=== PATIENT | female | born 1960 | race Hispanic/Latino ===

== ENCOUNTER 2016-10-07 09:12 | Outpatient (CLI) | payer BC ==
--- NOTE | 2016-10-07 10:00 | Mammography Report ---
BILATERAL MAMMOGRAM: FINDINGS: The breasts are almost entirely fat (<25% glandular). No mass, distortion, suspicious calcification, or skin change is seen. No significant change compared to prior exam in September 2015. CAD was utilized. IMPRESSION: Negative mammogram. There is no mammographic evidence of malignancy. RECOMMENDATION: Follow-up per ACS guidelines. BI-RADS CATEGORY: 1 = Negative ACR BI-RADS MAMMOGRAPHIC CODES: 0 = Needs additional imaging evaluation; 1 = Negative; 2 = Benign; 3 = Probably benign; 4 = Suspicious; 5 = Malignant; 6 = Known biopsy-proven malignancy COMMENT: 1. Dense breast tissue, i.e., adenosis, fibrocystic changes, etc., may obscure an underlying neoplasm. 2. Approximately 10% of cancers are not detected with mammography. 3. A negative mammography report should not delay biopsy if a clinically suspicious mass is present. COMMENT: Patient follow-up letters are generated in [employer].
== END 2016-10-07 09:13 | disposition home or self-care (01) ==
LOC: SPVWC 09:12
PROVIDERS: ATTEND Obstetrics & Gynecology
DX: Z12.31 Encounter for screening mammogram for malignant neoplasm of breast (principal)
CPT/HCPCS: 77067; G0202

== ENCOUNTER 2017-02-25 03:19 | Inpatient (IN) | payer BC ==
[2017-02-25] MEDS ORDERED: KEPPRA 1,000 MG in NACL 0.9% 100 ML IV ONE (04:41)
--- NOTE | 2017-02-25 04:48 | Emergency Department Report ---
ED Seizure HPI - General Chief Complaint: Seizure Stated Complaint: SEIZURES Time Seen by Provider: 02/25/17 04:37 Source: family (Father/son ), EMS Mode of arrival: Stretcher Limitations: Altered Mental Status - History of Present Illness Initial Comments: 57 yo female who was brought in via ems due to seizures. Per the family, the patient stated that she didn't feel right earlier on last night. She was recently diagnosed with a brain tumor for which she is soon to start radiation and chemo. Dr. Paulson at [place] is her oncologist and Dr. Beach is her neurosurgeon. Since the patient was diagnosed with a brain tumor, she has had seizures. She was started on keppra to control the seizures. states that he spoke with the oncologist and was instructed to increase the dose. The patient is able to maintain her airway. Her mental status is improved back to baseline. She received 5mg of versed en route to the hospital via ems. MD Complaint: seizure -: This evening Description of Episode: other (brain tumor-seizure activity ) Witnessed:: Yes Trauma: No Seizure History: other (recently diagnosed brain tumor ) Possible Precipitating Event: other (brain tumor ) Associated Symptoms: other (nausea,vomiting, possible aspiration ) Treatments Prior to Arrival: benzodiazepines - Related Data Home Medications Medication Instructions Recorded Confirmed Last Taken Hydrochlorothiazide [HCTZ] 25 mg PO QDAY 01/09/17 01/09/17 Unknown Levothyroxine Sodium [Synthroid] 100 mcg PO DAILY 01/09/17 01/09/17 Unknown Metoprolol Succinate [Toprol Xl] 25 mg PO DAILY 01/09/17 01/09/17 Unknown PARoxetine [Paxil] 20 mg PO DAILY 01/09/17 01/09/17 01/05/17 20 SUMAtriptan SUCCINATE [Imitrex] 100 mg PO Q4H PRN 01/09/17 01/09/17 Unknown Previous Rx's Medication Instructions Recorded Last Taken Type Zolpidem [Ambien] 5 mg PO QHS PRN #7 tablet 01/13/17 Unknown Rx levETIRAcetam [Keppra TAB] 1,000 mg PO BID #60 tablet 01/13/17 Unknown Rx Allergies Allergy/AdvReac Type Severity Reaction Status Date / Time Penicillins Allergy Anaphylaxis Verified 02/25/17 04:36 Sulfa (Sulfonamide Allergy Anaphylaxis Verified 01/06/17 02:59 Antibiotics) ED Review of Systems ROS: Stated complaint: SEIZURES Other details as noted in HPI Constitutional: denies: chills, fever Eyes: denies: eye pain, eye discharge, vision change ENT: as per HPI Respiratory: denies: cough, shortness of breath, wheezing Cardiovascular: denies: chest pain, palpitations Endocrine: no symptoms reported Gastrointestinal: denies: abdominal pain, nausea, diarrhea Genitourinary: denies: urgency, dysuria, discharge Musculoskeletal: denies: back pain, joint swelling, arthralgia Skin: denies: rash, lesions Neurological: as per HPI Psychiatric: denies: anxiety, depression Hematological/Lymphatic: denies: easy bleeding, easy bruising ED Past Medical Hx - Past Medical History Hx Hypertension: Yes Hx Congestive Heart Failure: No Hx Diabetes: No Hx Deep Vein Thrombosis: No Hx Psychiatric Treatment: Yes (Depression, Anxiety) Hx Asthma: No Hx COPD: No Additional medical history: brain tumor-newly diagnosed - Surgical History Hx Pacemaker: No Hx Internal Defibrillator: No - Social History Smoking Status: Never Smoker Substance Use Type: Prescribed - Medications Home Medications: Home Medications Medication Instructions Recorded Confirmed Last Taken Type Hydrochlorothiazide [HCTZ] 25 mg PO QDAY 01/09/17 01/09/17 Unknown History Levothyroxine Sodium [Synthroid] 100 mcg PO DAILY 01/09/17 01/09/17 Unknown History Metoprolol Succinate [Toprol Xl] 25 mg PO DAILY 01/09/17 01/09/17 Unknown History PARoxetine [Paxil] 20 mg PO DAILY 01/09/17 01/09/17 01/05/17 History 20 SUMAtriptan SUCCINATE [Imitrex] 100 mg PO Q4H PRN 01/09/17 01/09/17 Unknown History Zolpidem [Ambien] 5 mg PO QHS PRN #7 tablet 01/13/17 Unknown Rx levETIRAcetam [Keppra TAB] 1,000 mg PO BID #60 tablet 01/13/17 Unknown Rx ED Physical Exam - General Limitations: Altered Mental Status General appearance: other (somnolent) - Head Head exam: Present: atraumatic, normocephalic - Eye Eye exam: Present: normal appearance - ENT ENT exam: Present: mucous membranes moist - Neck Neck exam: Present: normal inspection - Respiratory Respiratory exam: Present: normal lung sounds bilaterally. Absent: respiratory distress - Cardiovascular Cardiovascular Exam: Present: regular rate, normal rhythm. Absent: systolic murmur, diastolic murmur, rubs, gallop - GI/Abdominal GI/Abdominal exam: Present: soft, normal bowel sounds - Extremities Exam Extremities exam: Present: normal inspection - Back Exam Back exam: Present: normal inspection - Neurological Exam Neurological exam: Present: alert (awake ) - Psychiatric Psychiatric exam: Present: other (somnolent ) - Skin Skin exam: Present: warm, dry, intact, normal color. Absent: rash ED Course Vital Signs 02/25/17 02/25/17 04:31 04:34 Temperature 97.9 F Pulse Rate 98 H Respiratory 20 20 Rate Blood Pressure 121/81 [Left] O2 Sat by Pulse 100 100 Oximetry - Reevaluation(s) Reevaluation #1: 02/25/17 05:20 Awaiting labs and imaging results. Giving keppra 1000 mg iv times one. Plan to transfer to [facility] when evaluation completed. 02/25/17 06:[address] Whatley. ED Medical Decision Making - Lab Data Result diagrams: 02/25/17 05:08 02/25/17 05:08 - Medical Decision Making Newly diagnosed brain tumor Seizure disorder Aspiration pneumonitis - Differential Diagnosis brain tumor, seizure disorder, aspiration pneumonitis Critical care attestation.: If time is entered above; I have spent that time in minutes in the direct care of this critically ill patient, excluding procedure time. ED Disposition Clinical Impression: Seizure, Brain tumor Disposition: [id number]/TX-[id number] ANOTHER TYPE HLTHCARE Is pt being admited?: Yes Does the pt Need Aspirin: No Condition: Stable Referrals: JOY NUGENT MD [Primary Care Provider] - 3-5 Days
[2017-02-25] MEDS ORDERED: ZOFRAN IV ONE ×2 (04:56→18:00)
[2017-02-25] MEDS ORDERED: NACL 0.9% 1000 ML 1,000 ML IV SCH (05:00)
[2017-02-25] MEDS ORDERED: LEVAQUIN 750MG/150ML 750 MG/150 ML BAG IV ONE (05:08)
--- NOTE | 2017-02-25 05:15 | XRay Report ---
FINAL REPORT PROCEDURE: XR CHEST 1V AP TECHNIQUE: Chest radiograph anteroposterior view. CPT 87509 HISTORY: chest pain COMPARISON: No prior studies are available for comparison. FINDINGS: Heart: Normal. Mediastinum/Vessels: Normal. Lungs/Pleural space: Lungs are clear. There are no infiltrates, effusions or pneumothoraces.. Bony thorax: No acute osseous abnormality. Life support devices: None. IMPRESSION: No acute cardiopulmonary abnormality.
[2017-02-25 05:34] LABS: Hematocrit 40.2 % (30.3-42.9); Mean Corpuscular HGB Conc 35 % (30-34); Mean Corpuscular Hemoglobin 32 pg (28-32); Mean Corpuscular Volume 91 fl (79-97); Platelet Count 285 K/mm3 (140-440); Red Blood Count 4.41 M/mm3 (3.65-5.03); Red Cell Distribution Width 13.9 % (13.2-15.2); White Blood Count 15.2 K/mm3 (4.5-11.0)
[2017-02-25 05:45] LABS: INR 0.97 (0.87-1.13)
[2017-02-25 05:46] LABS: Partial Thromboplastin Time 24.3 Sec. (24.2-36.6)
[2017-02-25 05:52] LABS: Creatine Kinase MB 2.5 ng/mL (0.0-4.0)
[2017-02-25 05:53] LABS: Alanine Aminotransferase 20 units/L (7-56); Albumin 4.3 g/dL (3.9-5); Albumin/Globulin Ratio 2.2 %; Alkaline Phosphatase 60 units/L (35-129); Anion Gap 20 mmol/L; BUN/Creatinine Ratio 13; Blood Urea Nitrogen 9 mg/dL (7-17); Calcium 9.2 mg/dL (8.4-10.2); Carbon Dioxide 26 mmol/L (22-30); Chloride 99.7 mmol/L (98-107); Creatine Kinase 46 units/L (30-135); Glucose 133 mg/dL (65-100); Potassium 3.5 mmol/L (3.6-5.0); Sodium 142 mmol/L (137-145); Total Protein 6.3 g/dL (6.3-8.2)
[2017-02-25] MEDS ORDERED: KEPPRA 1,000 MG/NS 0.75% 100ML 1,000 MG/100 ML BAG IV ONE (06:00)
[2017-02-25 06:22] LABS: Basophils % (Manual) 0 % (0.0-1.8); Blastocytes % (Manual) 0 %; Eosinophils % (Manual) 0 % (0.0-4.3)
[2017-02-25 06:23] LABS: Diff Status Complete; Ovalocytes 1+
[2017-02-25 07:16] LABS: Cholesterol 210 mg/dL (50-199); HDL Cholesterol 66 mg/dL (40-59); LDL Cholesterol,Direct 118 mg/dL (50-130); Triglycerides 133 mg/dL (2-149)
--- NOTE | 2017-02-25 07:47 | Cat Scan Report ---
FINAL REPORT PROCEDURE: CT HEAD/BRAIN WO CON TECHNIQUE: Computerized tomography of the head was performed without contrast material. HISTORY: seizure COMPARISON: 01/06/2017 FINDINGS: Skull and scalp: There is evidence of an old left temporal craniotomy with hardware placement. There is scarring of the left temporal and frontal scalp soft tissue.. Paranasal sinuses: Normal. Ventricles and subarachnoid spaces: Normal. Cerebrum: There is focal encephalomalacia of the left temporal lobe which could be due to prior surgical resection or other injury. There is no hemorrhage, edema, mass, mass effect or midline shift.. Cerebellum and brainstem: No evidence of hemorrhage, acute infarction or mass. Vasculature: Normal. IMPRESSION: There are left temporal postsurgical changes. There is no acute intracranial abnormality. If there is clinical concern for tumor recurrence, MRI of the brain with contrast may be indicated.
--- NOTE | 2017-02-25 09:49 | Emergency Department Report ---
Doris Doc - Documentation Documentation: Patient is signed out to me by Dr. Murphy to check labs, CT and transfer patient to [place]. Patient was recently diagnosed with a brain tumor that was recently removed operatively by a neurosurgeon. Patient developed seizures since diagnosis of brain tumor in December. At 1 PM the spoke to the patient via phone and she sounded normal. When he returned home at 5:15 PM patient was having difficulty forming words and slurred speech. Patient has similar symptoms for several days after seizures when diagnosed in December ( Initially thought to be an infectious issue but later found to be a brain tumor) . Patient apparently had 5 subsequent seizures and continues to have slurred speech and altered mental stauts At 9:45 AM I discussed case with Dr. Burns's PA. Recommend to call the [facility] transfer line to have patient admitted At 10 AM I spoke to [facility] transfer line. They will call back with the accepting physician at 10:19 AM received callback from [facility] transfer. I spoke to Dr. Burns's PA after speaking to the patient via telephone and requested transfer to [facility]. They provided they provide bed control number for transfer called Bed control, no beds at [facility] therefore will call back [place] 10:35 am I spoke to DENNY caldera transitions rn care coordinator: Dr Benoit - no beds at [facility], also rec transfer to [facility] and no beds. 10:46 am Pt accepted by Dr Goode at [facility]. No beds at this time but bed anticipated in the next several hours. Dr. Murillo (ED director) spoke to hospitalist director Dr Porter about admitting pt here 11:10 am pt accepted by Dr Yan for admission. Family and pt informed.
[2017-02-25 12:01] LABS: Urine Drugs of Abuse Note Disclamer
[2017-02-25 12:09] LABS: Bilirubin,Urine NEG (Negative); Blood,Urine NEG (Negative); Ketones,Urine TR mg/dL (Negative); Leukocyte Esterase,Urine NEG (Negative); Nitrite,Urine NEG (Negative); Protein,Urine <15 mg/dL mg/dL (Negative); Urobilinogen,Urine < 2.0 mg/dL (<2.0); WBC,Urine < 1.0 /HPF (0.0-6.0)
--- NOTE | 2017-02-25 14:25 | History and Physical Report ---
History of Present Illness Date of examination: 02/25/17 Date of admission: 02/25/17 12:49 Chief complaint: Seizures And AMS since AM History of present illness: See H/p in dictation Medications and Allergies Allergies Allergy/AdvReac Type Severity Reaction Status Date / Time Penicillins Allergy Anaphylaxis Verified 02/25/17 04:36 Sulfa (Sulfonamide Allergy Anaphylaxis Verified 01/06/17 02:59 Antibiotics) Home Medications Medication Instructions Recorded Confirmed Last Taken Type Hydrochlorothiazide [HCTZ] 25 mg PO QDAY 01/09/17 02/25/17 02/25/17 History Levothyroxine Sodium [Synthroid] 100 mcg PO DAILY 01/09/17 02/25/17 02/25/17 History Metoprolol Succinate [Toprol Xl] 25 mg PO DAILY 01/09/17 02/25/17 02/25/17 History PARoxetine [Paxil] 20 mg PO DAILY 01/09/17 02/25/17 02/25/17 History levETIRAcetam [Keppra TAB] 1,000 mg PO BID #60 tablet 01/13/17 02/25/17 Rx Multivitamin [Multiple Vitamins] 1 each PO DAILY 02/25/17 02/25/17 02/25/17 History Active Meds: Active Medications Sodium Chloride (Nacl 0.9% 1000 Ml) 1,000 mls @ 100 mls/hr IV DIRECT MISAEL Review of Systems All systems: negative Exam - Constitutional Vitals: Temp Pulse Resp BP Pulse Ox 97.9 F 98 H 20 121/81 100 02/25/17 04:31 02/25/17 04:31 02/25/17 04:34 02/25/17 04:31 02/25/17 04:34 General appearance: Present: no acute distress, well-nourished - EENT Eyes: Present: PERRL ENT: hearing intact, clear oral mucosa - Neck Neck: Present: supple, normal ROM - Respiratory Respiratory effort: normal Respiratory: bilateral: CTA - Cardiovascular Heart Sounds: Present: S1 & S2. Absent: rub, click - Extremities Extremities: pulses symmetrical, No edema Peripheral Pulses: within normal limits - Abdominal General gastrointestinal: Present: soft, non-tender, non-distended, normal bowel sounds Female genitourinary: Present: normal - Integumentary Integumentary: Present: clear, warm, dry - Musculoskeletal Musculoskeletal: gait normal, strength equal bilaterally - Psychiatric Psychiatric: appropriate mood/affect, intact judgment & insight - Neurologic Neurologic: CNII-XII intact, moves all extremities Results - Labs CBC & Chem 7: 02/25/17 05:08 02/25/17 05:08 Labs: Laboratory Last Values WBC 15.2 K/mm3 (4.5-11.0) H 02/25/17 05:08 RBC 4.41 M/mm3 (3.65-5.03) 02/25/17 05:08 Hgb 14.0 gm/dl (10.1-14.3) 02/25/17 05:08 Hct 40.2 % (30.3-42.9) 02/25/17 05:08 MCV 91 fl (79-97) 02/25/17 05:08 MCH 32 pg (28-32) 02/25/17 05:08 MCHC 35 % (30-34) H 02/25/17 05:08 RDW 13.9 % (13.2-15.2) 02/25/17 05:08 Plt Count 285 K/mm3 (140-440) 02/25/17 05:08 Add Manual Diff Complete 02/25/17 05:08 Total Counted 100 02/25/17 05:08 Seg Neutrophils % Jewelry Sorter 02/25/17 05:08 Seg Neuts % (Manual) 92.0 % (40.0-70.0) H 02/25/17 05:08 Band Neutrophils % 0 % 02/25/17 05:08 Lymphocytes % (Manual) 5.0 % (13.4-35.0) L 02/25/17 05:08 Reactive Lymphs % (Man) 0 % 02/25/17 05:08 Monocytes % (Manual) 2.0 % (0.0-7.3) 02/25/17 05:08 Eosinophils % (Manual) 0 % (0.0-4.3) 02/25/17 05:08 Basophils % (Manual) 0 % (0.0-1.8) 02/25/17 05:08 Metamyelocytes % 1.0 % 02/25/17 05:08 Myelocytes % 0 % 02/25/17 05:08 Promyelocytes % 0 % 02/25/17 05:08 Blast Cells % 0 % 02/25/17 05:08 Nucleated RBC % Not Reportable 02/25/17 05:08 Seg Neutrophils # Man 14.0 K/mm3 (1.8-7.7) H 02/25/17 05:08 Band Neutrophils # 0.0 K/mm3 02/25/17 05:08 Lymphocytes # (Manual) 0.8 K/mm3 (1.2-5.4) L 02/25/17 05:08 Abs React Lymphs (Man) 0.0 K/mm3 02/25/17 05:08 Monocytes # (Manual) 0.3 K/mm3 (0.0-0.8) 02/25/17 05:08 Eosinophils # (Manual) 0.0 K/mm3 (0.0-0.4) 02/25/17 05:08 Basophils # (Manual) 0.0 K/mm3 (0.0-0.1) 02/25/17 05:08 Metamyelocytes # 0.2 K/mm3 02/25/17 05:08 Myelocytes # 0.0 K/mm3 02/25/17 05:08 Promyelocytes # 0.0 K/mm3 02/25/17 05:08 Blast Cells # 0.0 K/mm3 02/25/17 05:08 WBC Morphology Not Reportable 02/25/17 05:08 Hypersegmented Neuts Not Reportable 02/25/17 05:08 Hyposegmented Neuts Not Reportable 02/25/17 05:08 Hypogranular Neuts Not Reportable 02/25/17 05:08 Smudge Cells Not Reportable 02/25/17 05:08 Toxic Granulation Not Reportable 02/25/17 05:08 Toxic Vacuolation Not Reportable 02/25/17 05:08 Dohle Bodies Not Reportable 02/25/17 05:08 Pelger-Huet Anomaly Not Reportable 02/25/17 05:08 Herb Rods Not Reportable 02/25/17 05:08 Platelet Estimate Appears normal 02/25/17 05:08 Clumped Platelets Not Reportable 02/25/17 05:08 Plt Clumps, EDTA Not Reportable 02/25/17 05:08 Large Platelets Not Reportable 02/25/17 05:08 Giant Platelets Not Reportable 02/25/17 05:08 Platelet Satelliting Not Reportable 02/25/17 05:08 Plt Morphology Comment Not Reportable 02/25/17 05:08 RBC Morphology Not Reportable 02/25/17 05:08 Dimorphic RBCs Not Reportable 02/25/17 05:08 Polychromasia Not Reportable 02/25/17 05:08 Hypochromasia Not Reportable 02/25/17 05:08 Poikilocytosis Not Reportable 02/25/17 05:08 Anisocytosis Not Reportable 02/25/17 05:08 Microcytosis Not Reportable 02/25/17 05:08 Macrocytosis Not Reportable 02/25/17 05:08 Spherocytes Not Reportable 02/25/17 05:08 Pappenheimer Bodies Not Reportable 02/25/17 05:08 Sickle Cells Not Reportable 02/25/17 05:08 Target Cells Not Reportable 02/25/17 05:08 Tear Drop Cells Not Reportable 02/25/17 05:08 Ovalocytes 1+ 02/25/17 05:08 Helmet Cells Not Reportable 02/25/17 05:08 [place] Bodies Not Reportable 02/25/17 05:08 [place] Rings Not Reportable 02/25/17 05:08 [place] Cells Not Reportable 02/25/17 05:08 Bite Cells Not Reportable 02/25/17 05:08 Crenated Cell Not Reportable 02/25/17 05:08 Elliptocytes Not Reportable 02/25/17 05:08 Acanthocytes (Spur) Not Reportable 02/25/17 05:08 Rouleaux Not Reportable 02/25/17 05:08 Hemoglobin C Crystals Not Reportable 02/25/17 05:08 Schistocytes Not Reportable 02/25/17 05:08 Malaria parasites Not Reportable 02/25/17 05:08 Estrada Bodies Not Reportable 02/25/17 05:08 Hem Pathologist Commnt No 02/25/17 05:08 PT 13.4 Sec. (12.2-14.9) 02/25/17 05:08 INR 0.97 (0.87-1.13) 02/25/17 05:08 APTT 24.3 Sec. (24.2-36.6) 02/25/17 05:08 Sodium 142 mmol/L (137-145) 02/25/17 05:08 Potassium 3.5 mmol/L (3.6-5.0) L 02/25/17 05:08 Chloride 99.7 mmol/L (98-107) 02/25/17 05:08 Carbon Dioxide 26 mmol/L (22-30) 02/25/17 05:08 Anion Gap 20 mmol/L 02/25/17 05:08 BUN 9 mg/dL (7-17) 02/25/17 05:08 Creatinine 0.7 mg/dL (0.7-1.2) 02/25/17 05:08 Estimated GFR > 60 ml/min 02/25/17 05:08 BUN/Creatinine Ratio 13 % 02/25/17 05:08 Glucose 133 mg/dL (65-100) H 02/25/17 05:08 POC Glucose 157 (70-105) H 02/25/17 03:30 Calcium 9.2 mg/dL (8.4-10.2) 02/25/17 05:08 Total Bilirubin 0.40 mg/dL (0.1-1.2) 02/25/17 05:08 AST 15 units/L (5-40) 02/25/17 05:08 ALT 20 units/L (7-56) 02/25/17 05:08 Alkaline Phosphatase 60 units/L (35-129) 02/25/17 05:08 Total Creatine Kinase 46 units/L (30-135) 02/25/17 05:08 CK-MB (CK-2) 2.5 ng/mL (0.0-4.0) 02/25/17 05:08 CK-MB (CK-2) Rel Index 5.4 (0-4) H 02/25/17 05:08 Troponin T 0.063 ng/mL (0.00-0.029) H D 02/25/17 09:58 Total Protein 6.3 g/dL (6.3-8.2) 02/25/17 05:08 Albumin 4.3 g/dL (3.9-5) 02/25/17 05:08 Albumin/Globulin Ratio 2.2 % 02/25/17 05:08 Triglycerides 133 mg/dL (2-149) 02/25/17 05:08 Cholesterol 210 mg/dL (50-199) H 02/25/17 05:08 LDL Cholesterol Direct 118 mg/dL (50-130) 02/25/17 05:08 HDL Cholesterol 66 mg/dL (40-59) H 02/25/17 05:08 Cholesterol/HDL Ratio 3.18 % 02/25/17 05:08 Urine Color Yellow (Yellow) 02/25/17 12:00 Urine Turbidity Clear (Clear) 02/25/17 12:00 Urine pH 5.0 (5.0-7.0) 02/25/17 12:00 Ur Specific Mobile 1.017 (1.003-1.030) 02/25/17 12:00 Urine Protein <15 mg/dl mg/dL (Negative) 02/25/17 12:00 Urine Glucose (UA) 50 mg/dL (Negative) 02/25/17 12:00 Urine Ketones Tr mg/dL (Negative) 02/25/17 12:00 Urine Blood Neg (Negative) 02/25/17 12:00 Urine Nitrite Neg (Negative) 02/25/17 12:00 Urine Bilirubin Neg (Negative) 02/25/17 12:00 Urine Urobilinogen < 2.0 mg/dL (<2.0) 02/25/17 12:00 Ur Leukocyte Esterase Neg (Negative) 02/25/17 12:00 Urine WBC (Auto) < 1.0 /HPF (0.0-6.0) 02/25/17 12:00 Urine RBC (Auto) 1.0 /HPF (0.0-6.0) 02/25/17 12:00 Hyaline Casts 1 /LPF 02/25/17 12:00 Urine Opiates Screen Presumptive negative 02/25/17 12:00 Urine Methadone Screen Presumptive negative 02/25/17 12:00 Ur Barbiturates Screen Presumptive negative 02/25/17 12:00 Ur Phencyclidine Scrn Presumptive negative 02/25/17 12:00 Ur Amphetamines Screen Presumptive negative 02/25/17 12:00 U Benzodiazepines Scrn Presumptive positive 02/25/17 12:00 Urine Cocaine Screen Presumptive negative 02/25/17 12:00 U Marijuana (THC) Screen Presumptive positive 02/25/17 12:00 Drugs of Abuse Note Disclamer 02/25/17 12:00 Assessment and Plan Assessment and plan: See H/p in dictation
[2017-02-25 15:47] VITALS: BP 136/72
--- NOTE | 2017-02-26 14:48 | History and Physical Report ---
CHIEF COMPLAINT: 1. Seizures. 2. Altered mental status. HISTORY OF PRESENT ILLNESS: A 57-year-old female brought by EMS because of seizures. The patient had a brain tumor for which she was biopsied. She does not know whether the whole mass was removed. The patient soon to start radiation and chemotherapy. Dr. Paulson at [facility] is her oncologist and Dr. Beach is her neurosurgeon. She was diagnosed with brain tumor recently. The patient is confused and with altered sensorium. No fever, no chills. 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 CURRENT MEDICATIONS: Hydrochlorothiazide 25 mg p.o. daily, Synthroid 100 mcg p.o. daily, metoprolol 25 mg p.o. daily, Paxil 20 mg p.o. daily, sumatriptan succinate, which is Imitrex 100 mg p.o. q.4h. p.r.n. ALLERGIES: PENICILLIN, SULFA and LEVAQUIN. PAST SURGICAL HISTORY: Recent biopsy. No defibrillator, no pacemaker. SOCIAL HISTORY: Does not smoke. FAMILY HISTORY: Hypertension. REVIEW OF SYSTEMS: Significant for seizures and postictal state. Otherwise, review of systems is essentially negative. No weight loss, no weight gain. Seizures in the remote past. PHYSICAL EXAMINATION: GENERAL: A middle-aged female, cooperative during examination but lethargic. VITAL SIGNS: Blood pressure is 144/71, pulse is 83, temperature is 98.1, respirations are 19, sats are 92%. HEENT: Unremarkable. Pupils equal and reactive. NECK: Supple, no lymphadenopathy, no thyromegaly. LUNGS: Clear to auscultation and percussion. Good air entry. CARDIOVASCULAR: S1, S2 heard. No gallop, no murmur, no rub. Apical impulse in the left fifth intercostal space and midclavicular line. ABDOMEN: Soft and benign. No hepatosplenomegaly. No guarding. No rigidity. Hernial orifices are normal. EXTREMITIES: Good pedal pulses. No pedal edema. CENTRAL NERVOUS SYSTEM: Alert and oriented x 4, nonfocal exam. Quite lethargic. SKIN: Normal. LABORATORY DATA: Significant for hemoglobin of 14 and hematocrit of 40.2, WBC count is 15,200. Electrolytes are normal. Glucose is slightly high at 133. Troponin is 0.043 and 0.063. Total cholesterol was 210, LDL is 118, HDL is ____ which itself is high. Urine was negative. Drug screen was negative. CAT scan of the head showed normal CAT scan, no acute changes in the brain. ASSESSMENT AND PLAN: 1. Acute encephalopathy secondary to seizures. IV fluids for the time being. Continue IV Keppra. 2. Seizure disorder. Continue IV Keppra. 3. Brain tumor, recent biopsy. The patient underwent chemotherapy. The patient to follow with [facility]. 4. Seizure disorder. Continue Keppra 1000 mg twice a day. 5. Hypertension. Continue metoprolol 25 mg once a day. 6. Hypothyroidism. Continue Synthroid 100 mcg p.o. daily. 7. Migraine headaches by history. Continue Imitrex 100 mg p.o. q.4h. p.r.n. JOB# [id number] VSM/NTS
== END 2017-02-25 20:20 | disposition short-term general hospital (02) | DRG 101 ==
LOC: ED 03:19 → 3A 12:49
PROVIDERS: ADMIT Internal Medicine; ATTEND Internal Medicine
DX: G40.909 Epilepsy, unspecified, not intractable, without status epilepticus (principal); C71.9 Malignant neoplasm of brain, unspecified; I10 Essential (primary) hypertension; F32.9 Major depressive disorder, single episode, unspecified; F41.9 Anxiety disorder, unspecified; E03.9 Hypothyroidism, unspecified; R47.81 Slurred speech; G43.909 Migraine, unspecified, not intractable, without status migrainosus; Z92.21 Personal history of antineoplastic chemotherapy; Z88.2 Allergy status to sulfonamides; Z87.898 Personal history of other specified conditions; Z88.0 Allergy status to penicillin; Z82.49 Family history of ischemic heart disease and other diseases of the circulatory system; Z92.3 Personal history of irradiation
CPT/HCPCS: 36415; 70450; 71010; 80053; 80061; 80307; 81001; 82550; 82553; 82962; 84484; 85007; 85025; 85610; 85730; 87040; 93005; 93010; 96365; 96366; 96368; 96375; J1953; J1956; J2405; J7030

== ENCOUNTER 2017-10-10 13:52 | Outpatient (CLI) | payer BC ==
--- NOTE | 2017-10-10 14:42 | Mammography Report ---
BILATERAL MAMMOGRAM: FINDINGS: There are scattered fibroglandular densities (approximately 25%-50% glandular). No mass, distortion, suspicious calcification, or skin change is seen. No interval change compared to September 2016. CAD was utilized. IMPRESSION: Negative mammogram. There is no mammographic evidence of malignancy. RECOMMENDATION: Follow-up per ACS guidelines. BI-RADS CATEGORY: 1 = Negative ACR BI-RADS MAMMOGRAPHIC CODES: 0 = Needs additional imaging evaluation; 1 = Negative; 2 = Benign; 3 = Probably benign; 4 = Suspicious; 5 = Malignant; 6 = Known biopsy-proven malignancy COMMENT: 1. Dense breast tissue, i.e., adenosis, fibrocystic changes, etc., may obscure an underlying neoplasm. 2. Approximately 10% of cancers are not detected with mammography. 3. A negative mammography report should not delay biopsy if a clinically suspicious mass is present. COMMENT: Patient follow-up letters are generated in [facility].
== END 2017-10-10 13:53 | disposition home or self-care (01) ==
LOC: SPVWC 13:52
PROVIDERS: ATTEND Obstetrics & Gynecology
DX: Z12.31 Encounter for screening mammogram for malignant neoplasm of breast (principal); I10 Essential (primary) hypertension; F41.9 Anxiety disorder, unspecified; F32.9 Major depressive disorder, single episode, unspecified; Z88.1 Allergy status to other antibiotic agents; Z88.0 Allergy status to penicillin
CPT/HCPCS: 77067